=== PATIENT | female | born 1985 | race Caucasian/White ===

== ENCOUNTER → 2018-02-08 10:56 | Outpatient (CLI) | payer BC, SELFPAY ==
[2018-02-08 12:30] LABS: TSH w/ Reflex to FT4 1.69 uIU/mL (0.47-4.68)
== END ==
PROVIDERS: Family Provider Family Medicine; PCP Family Medicine; Visit Provider Family Medicine
DX: R00.2 Palpitations (principal)
CPT/HCPCS: 36415; 84443

== ENCOUNTER → 2018-05-30 09:37 | Outpatient (CLI) | payer BC, SELFPAY ==
--- NOTE | 2018-06-22 07:45 | P.HOLT.S_ITS ---
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 No significant dysrhythmias identified with this study. Occasional to rare PACs and PVCs
== END ==
PROVIDERS: Family Provider Family Medicine; PCP Family Medicine; Visit Provider Family Medicine
DX: R00.2 Palpitations (principal)
CPT/HCPCS: 0296T; 0298T

== ENCOUNTER → 2020-08-11 12:11 | Outpatient (CLI) | payer BC, SELFPAY ==
--- NOTE | 2020-08-11 12:13 | DI.US.S_ITS ---
PROCEDURE: US PELVIC COMPLETE INDICATIONS: PAIN TECHNIQUE: Real-time scanning was performed of the pelvic organs, with image documentation. Additional endovaginal scanning was necessary due to incomplete visualization of the adnexal and endometrial structures by transabdominal scanning. COMPARISON: None. FINDINGS: Transabdominal scanning: Limited scanning through the kidneys shows no hydronephrosis. Right kidney measures 11.4 cm. Left kidney measures 10.7 cm. Trace physiologic fluid in the pelvis. Endovaginal scanning: Uterus: Uterus is anteverted and normal in size at 10.5 x 6.2 x 4.8 cm. No uterine mass seen. The endometrium measures 8 mm in combined thickness. Ovaries: Within normal limits. Blood flow seen in both ovaries. Right ovary measures 3.1 x 2.1 x 1.6 cm. Left ovary measures 3.3 x 3.3 x 2.4 cm. -small simple cyst in the left ovary measuring 2.6 cm. IMPRESSION: 1. Endometrial thickness measuring 8 mm. 2. No uterine mass seen. 3. Simple left ovarian cyst measuring 2.6 cm. Dictated by: Addi Cole M.D. on 08/11/2020 at 13:03 Approved by: Addi Cole M.D. on 08/11/2020 at 13:06
== END ==
PROVIDERS: PCP Family Medicine; Referring Provider Family Medicine; Visit Provider Family Medicine
DX: R10.2 Pelvic and perineal pain (principal); N83.292 Other ovarian cyst, left side
CPT/HCPCS: 76856

== ENCOUNTER → 2020-09-01 09:05 | Outpatient (CLI) | payer BC, SELFPAY ==
[2020-09-01 10:19] LABS: Add Manual Diff / Slide Review NO; Basophils Absolute Auto 0 /uL (0-100); Basophils Percent Auto 0.5 % (0-2); Eosinophils Absolute Auto 100 /uL (0-450); Hematocrit 37.4 % (36-46); Lymphocytes Absolute Auto 1500 /uL (1100-4500); Lymphocytes Percent Auto 28.4 % (25-40); Mean Corpuscular HGB Conc 32.2 % (30-36); Mean Corpuscular Hemoglobin 30.2 PG (26-34); Mean Corpuscular Volume 93.7 fL (80-100); Monocytes Absolute Auto 400 /uL (0-900); Monocytes Percent Auto 8.4 % (3-14); Neutrophils Absolute Auto 3200 /uL (1500-7000); Neutrophils Percent Auto 60.7 % (50-75); Platelet Count 217 X10^3/uL (150-400); Red Blood Cell Count 3.99 X10^6/uL (4.0-5.2); Red Cell Distribution Width 13.2 % (11.6-14.8); White Blood Cell Count 5.2 X10^3/uL (4.5-11.0)
[2020-09-01 11:14] LABS: Alanine Aminotransferase 13 IU/L (<35); Albumin Globulin Ratio 1.7 (1.0-2.8); Alkaline Phosphatase 44 U/L (38-126); Aspartate Aminotransferase 25 IU/L (14-36); Bilirubin Total 0.6 mg/dL (0.2-1.3); Blood Urea Nitrogen 13 mg/dL (7-17); Carbon Dioxide 29 mmol/L (22-32); Chloride 104 mmol/L (98-107); Estimated Glomerular Filt Rate > 60.0 mL/min (>60); Globulin 2.3 g/dL (1.7-4.1); Glucose 89 mg/dL (70-100); HEMOLYSIS < 15 (0-50); Potassium 4.2 mmol/L (3.4-5.1); Sodium 136 mmol/L (137-145); Total Protein 6.3 g/dL (6.3-8.2)
== END ==
PROVIDERS: PCP Family Medicine; Referring Provider Family Medicine; Visit Provider Family Medicine
DX: R10.2 Pelvic and perineal pain (principal)
CPT/HCPCS: 36415; 80053; 85025

== ENCOUNTER → 2020-10-23 09:35 | Outpatient (CLI) | payer BC, SELFPAY ==
[2020-10-23 11:05] LABS: TSH w/ Reflex to FT4 2.07 uIU/mL (0.47-4.68)
== END ==
PROVIDERS: PCP Family Medicine; Referring Provider Family Medicine; Visit Provider Family Medicine
DX: L65.9 Nonscarring hair loss, unspecified (principal)
CPT/HCPCS: 36415; 84443

== ENCOUNTER → 2021-12-09 12:03 | Outpatient (CLI) | payer BC, SELFPAY ==
[2021-12-09 12:55] LABS: Add Manual Diff / Slide Review NO; Basophils Absolute Auto 0 /uL (0-100); Basophils Percent Auto 0.4 % (0-2); Eosinophils Absolute Auto 100 /uL (0-450); Eosinophils Percent Auto 1.5 % (2-4); Hemoglobin 11.6 g/dL (12.0-16.0); Lymphocytes Absolute Auto 1600 /uL (1100-4500); Lymphocytes Percent Auto 24.1 % (25-40); Mean Corpuscular HGB Conc 33.2 % (30-36); Mean Corpuscular Hemoglobin 28.6 PG (26-34); Mean Corpuscular Volume 86.3 fL (80-100); Monocytes Absolute Auto 600 /uL (0-900); Monocytes Percent Auto 9.7 % (3-14); Neutrophils Absolute Auto 4100 /uL (1500-7000); Neutrophils Percent Auto 64.3 % (50-75); Platelet Count 198 X10^3/uL (150-400); Red Blood Cell Count 4.06 X10^6/uL (4.0-5.2); Red Cell Distribution Width 13.9 % (11.6-14.8); White Blood Cell Count 6.5 X10^3/uL (4.5-11.0)
[2021-12-09 13:57] LABS: TSH w/ Reflex to FT4 1.32 uIU/mL (0.47-4.68)
== END ==
PROVIDERS: PCP Family Medicine; Referring Provider Physician Assistant Medical; Visit Provider Physician Assistant Medical
DX: N92.6 Irregular menstruation, unspecified (principal); R53.83 Other fatigue
CPT/HCPCS: 36415; 84443; 85025

== ENCOUNTER → 2022-05-13 10:26 | Outpatient (CLI) | payer BC, SELFPAY ==
[2022-05-13 11:30] LABS: COVID19 -Nasal RAPID Negative (Negative)
== END ==
PROVIDERS: PCP Family Medicine; Visit Provider Specialist
DX: Z20.822 Contact with and (suspected) exposure to COVID-19 (principal); Z01.812 Encounter for preprocedural laboratory examination
CPT/HCPCS: 87635

== ENCOUNTER 2022-05-16 07:34 | Day surgery (SDC) | payer BC, SELFPAY ==
[2022-05-13 10:28] VITALS: BMI 24.7
[2022-05-16] VITALS (9 sets, daily range): BP systolic 99–130; BP diastolic 60–85; PULSE 74–133; RESP 12–25; TEMP 36.3–37.2; O2SAT 97–100; BMI 24.7
--- NOTE | 2022-05-16 | PATH_ITS ---
[facility] Accession Number: [id number] . 01 Material submitted: . uterus - UTERUS AND BILATERAL FALLOPIAN TUBES . 01 Diagnosis: Uterus and Bilateral Fallopian Tubes, Hysterectomy and Salpingectomy: Benign, early secretory phase endometrium without evidence of hyperplasia, atypia or malignancy. Myometrium without diagnostic abnormalities. Benign fallopian tube present, see comment. [facility] 05/23/2022 1627 Local . 01 Comment: Examination of the endometrium reveals secretory phase glands without atypia, hyperplasia or malignancy. No diagnostic abnormalities are identified on microscopic examination of the myometrium. Examination of one fallopian tube reveals no significant diagnostic abnormalities. A second tubular structure (possibly representing fragment of second fallopian tube) is also described (on the gross description), however, on microscopic examination, no fallopian tube epithelium is recognized. Only fibroconnective/vascular tissue is identified. Additional sections have also been submitted in an attempt to identify the possible second fallopian tube, however, no definite fallopian tube epithelium identified. . Clinical correlation is recommended. . 01 Electronically signed: . Adrianne Malone MD, Pathologist NPI- [id number] . 01 Gross description: . The specimen is received in formalin labeled with the patient's name and uterus and bilateral fallopian tubes, and consists of a fragmented uterus (95 grams, 12.5 x 10.4 x 4.0 cm in aggregate), with one fimbriated fallopian tube (7.2 x 1.0 cm), and a second tubular fragment possibly consistent with second fallopian tube (1.3 x 0.3 cm); however, no distinct second fimbriated fallopian tube is identified. No cervix or additional adnexa are identified. The serosa is vega and smooth with no evidence of adhesions or hemorrhage. The identifiable endometrium is vega and lush, and averages 0.2 cm thick. Sectioning reveals vega trabecular myometrium with no nodules, lesions, or hemorrhage identified. Fimbriated fallopian tube has congested smooth serosa without significant abnormalities. Sectioning reveals a congested stellate lumen. The tubular structure possibly consistent with fragment of second fallopian tube has vega smooth serosa and sectioning reveals an unremarkable pinpoint lumen. Director Of [employer] sections are submitted as follows: . A1-A2: Director Of [employer] endometrium. A3: Director Of [employer] serosa A4: Fimbriated fallopian tube to include entire fimbriae and cross-sections. A5: Director Of Email Marketing second tubular structure possibly consistent with fallopian tube. ([id number]) . Additional fragments of possible second fallopian tube are submitted in cassettes A6-A7. ([id number]) /MRV 05/23/2022 1627 Local . 01 Pathologist provided ICD-10: N39.3, N92.0 . 01 CPT . 911445 Specimen Comment: A courtesy copy of this report has been sent to [phone] Performed at: 01 [facility] [address] [place] [address], [place], [place] [id number] MD David Garner MD Phone: [phone]
--- NOTE | 2022-05-16 08:47 | PM.PREOP ---
Pre-operative Note COVID-19 COVID-19 status: Negative Result date/Date tested (Pos, Neg/Pending): 05/13/22 Criteria for continued procedure: Non-surgical alternatives not available or appropriate per current SOC Interval Note History & Physical reviewed/Exam performed by Physician: Yes Changes to H&P: No H&P completed within 30 days and has changed as indicated here:: 05/06/22
[2022-05-16] MEDS: CEFAZOLIN 2 GM/100 ML PREMIX 100 ML IV (09:05)
--- NOTE | 2022-05-16 09:19 | SUR.OPER ---
Lithotomy on padded OR bed. [place] Pad Positioner under torso. Head on pillow, arms padded and tucked at sides. Legs secured in padded yellow fins stirrups.
--- NOTE | 2022-05-16 10:15 | SUR.OPER ---
Lithotomy on padded OR bed. [place] Pad Positioner under torso. Head on pillow, arms padded and tucked at sides. Legs secured in padded yellow fins stirrups.
[2022-05-16] MEDS: BUPIVACAINE 0.5% W/ EPI (PF) 30 ML VIAL INJ (10:28)
[2022-05-16] MEDS: LACTATED RINGERS 1,000 ML 100 ML IV (10:30)
--- NOTE | 2022-05-16 11:37 | P.OP_ITS ---
Operative Date/Time/Diagnoses Date of procedure: 05/16/22 Time of procedure: 11:37 Pre-op diagnosis: Stress urinary incontinence Abnormal uterine bleeding Post-op diagnosis: same Procedure & Clinicians Procedure: Procedures Operation Date: 05/16/22 09:00 Actual Procedure Side Surgeon p Laparoscopic Supracervical Hysterectomy w. bilateral salpingectomy Berkley Paredes MD s TVT w. cystoscopy Berkley Paredes MD Indications: Abnormal uterine bleeding Stress urinary incontinence Surgeon: Berkley Paredes Corporate Associate Attorney: Ashley Feliciano Anesthesia Type: General and Local Operative Notes Findings: 8 week size anteverted uterus Normal tubes and ovaries Normal appendix Normal liver and gallbladder Closure Type: primary Specimen(s): left tube, right tube and uterus Applied: catheter (Removed at the end of the case) Estimated blood loss (mL): 50 Blood products transfused: none Procedure in detail: The patient was taken to the operating room where she was placed in the dorsal supine position. After adequate general endotracheal anesthesia was achieved, she was placed in the dorsal lithotomy position, and prepped and draped in the usual sterile fashion. A timeout was performed. A bivalve speculum was placed into the vagina and the anterior lip of the cervix grasped with a single-tooth tenaculum. The cervical os was sequentially dilated until the ZUMI uterine manipulator could pass easily into the endometrial cavity. The single-tooth tenaculum was removed from the anterior lip of the cervix, and the bivalve speculum was removed from the vagina. Attention was then turned to the abdomen where 6 mL of half percent Marcaine with epinephrine were injected in the umbilical fold. A 5 mm incision was made. The Verees needle was placed into the peritoneal cavity, and its placement confirmed by aspiration and drop test. The Verees needle was removed. A 5 mm trocar was placed without difficulty. 2 other incisions were made 4cm lateral to the umbilicus after 5 mL of half percent Marcaine with epinephrine were injected. These were 5 mm incisions. Two 5 mm trocars were placed under direct visualization. The right tube was grasped with an atraumatic grasper. Using the with settings Powerseal the mesosalpinx was cauterized and cut all the way down to the cornua of the uterus. The cornua of the uterus was then grasped with an atraumatic grasper. The utero-ovarian ligaments were cauterized and cut. The round ligament and broad ligament was cauterized and cut with the Powerseal. Hemostasis was achieved. The bladder flap was created. All of this was repeated on the left side. The remainder of the bladder flap was created using the Powerseal, and the bladder taken down off the lower uterine segment and cervix. Using the Endoloop, the cervix was amputated from the uterus 2 cm above the uterosacral ligaments, after the ZUMI uterine manipulator was removed from the uterus. A moistened sponge stick was placed into the vagina. There was a small amount of bleeding noted from the posterior edge of the cervix, and this was cauterized for hemostasis. 6 mL of half percent Marcaine with epinephrine were injected above the pubic symphysis. A 12 mm trocar was placed. An Endobag was placed through the suprapubic trocar and the uterus and ovaries were placed into the Endobag. The trocar was removed. The edges of the endobag were brought up through the skin. The Kev placed into the endobag. The uterus was hand morcellated in approximately 10 pieces. The Endobag was removed from the peritoneal cavity with the Kev. The pelvis was copiously irrigated with warm normal saline. No bleeding was noted. The instruments were removed from the abdomen. The CO2 was allowed to escape. The suprapubic incision was closed on the fascia with 0 Vicryl. Two simple interrupted sutures were placed in the suprapubic incision to reapproximate the subcutaneous layer. All of the incisions were closed with 4-0 Biosyn in a subcuticular fashion. Steri-Strips and Allevyn dressings were placed. The moistened sponge stick was removed from the vagina. 100 cc of sterile saline with a small amount of 0.25% Marcaine with epinephrine were injected behind the pubic symphysis into the space of Retzius using a # 20 spinal needle. Attention was then turned to the vagina where a weighted speculum was placed. Allis clamps were placed lateral to the urethra proximally 1.5 cm from the urethral meatus. 3 cc of 0.25% Marcaine with epinephrine were injected submucosally. A 1.5 cm incision was made vertically. The incision was dissected out laterally with Metzenbaum scissors. A rigid catheter was placed into the bladder. The patient was placed flat on the table with her thighs parallel to the floor. 10 cc of 0.25% Marcaine with epinephrine were injected into the proposed path of the TVT on the patient's right side, with the bladder neck retracted away from the patient's right side. This area was then dissected with the dilators to the # 6 Hegar dilator. All of this was repeated on the patient's left side with the bladder neck retracted away from the patient's left side. A hemostat was placed in the midline of the TVT on the plastic covering, with care not to include the TVT itself. The TVT was loaded. The patient's shoulder was marked on the drape on the right and left sides. Beginning with the right side with the bladder neck retracted away from the right side, the TVT was directed towards the patient's right shoulder, perforating the urogenital diaphragm, coming up behind the pubic symphysis and out through the skin 2 cm from the midline. All of this was repeated on the patient's left side with the bladder neck retracted away from the patient's left side. The bladder was filled with 240 cc of sterile saline. A cystoscopy was performed. The bubble was seen at the dome of the bladder. There was no perforation of the bladder with the introducers for the TVT. The TVT applicators were pulled up through the skin with approximately 4 mm between the TVT and the urethra. The patient was made to cough and there was no leakage of urine. The sheath over the TVT was removed by grasping with hemostats, and care was taken to not overtighten the TVT by placing a pickup between the TVT and the urethra. The TVT was cut below the skin line on the abdomen. Pressure was held over the vaginal incision for 1 minute. Hemostasis was achieved. The vaginal mucosa was closed with 3-0 Vicryl with a running interlocking suture. Surgical glue was placed over the TVT incisions above the pubic symphysis. The weighted speculum was removed from the vagina. Sponge, lap, and instrument counts were correct x-2. The patient tolerated the procedure well, was taken to PACU in stable condition. Complications: none Post-operative Condition: stable Disposition: PACU Plan for aftercare: Home after recovery and successful void with low postvoid residual
--- NOTE | 2022-05-16 11:51 | SUR.PHASEI ---
1145 Dr Harley at bedside and notified that pt HR was 135 when she was waking up and then went back down into the low 100s. Pt denies pain. No orders given by Dr Harley.
--- NOTE | 2022-05-16 12:09 | SUR.PHASEI ---
1205 pt sitting up in bed eating applesauce and states pain 5/5 but declines any pain medications
[2022-05-16] MEDS: OXYCODONE/ACETAMINOPHEN 5/325 TABLET 1 TAB PO (12:23)
== END 2022-05-16 14:45 | disposition home or self-care (01) ==
LOC: OR 07:36 → AC 07:37
PROVIDERS: PCP Family Medicine; Referring Provider Obstetrics & Gynecology; Visit Provider Obstetrics & Gynecology
PROC: 0UT94ZL Resection of Uterus, Supracervical, Percutaneous Endoscopic Approach (ICD-10-PCS; CPT 58542; principal; 2022-05-16 09:00)
PROC: 0TSD0ZZ Reposition Urethra, Open Approach (ICD-10-PCS; CPT 58542; 2022-05-16 09:00)
DX: N39.3 Stress incontinence (female) (male) (principal); N93.8 Other specified abnormal uterine and vaginal bleeding
CPT/HCPCS: 58542; 57288; C1771; J0690; J1100; J1200; J1885; J2250; J2405; J2795; J3010

== ENCOUNTER 2022-08-04 00:08 | Emergency (ER) | payer BC, SELFPAY ==
[2022-08-04] VITALS (12 sets, daily range): BP systolic 106–138; BP diastolic 64–95; PULSE 107–212; RESP 13–25; TEMP 36.4; O2SAT 95–99; BMI 24.9
--- NOTE | 2022-08-04 00:28 | DI.RAD.S_ITS ---
PROCEDURE: XR CHEST 1V INDICATIONS: chest pain TECHNIQUE: One view of the chest was acquired. COMPARISON: None. FINDINGS: Surgical changes and devices: None. Lungs and pleura: Lungs are clear. No pleural effusions or pneumothorax. Mediastinum: Mediastinal contours appear normal. Heart size is normal. Bones and chest wall: No suspicious bony lesions. Overlying soft tissues appear unremarkable. IMPRESSION: No acute pulmonary process. Dictated by: Kimi Alejandro M.D. on 08/04/2022 at 1:24 Approved by: Kimi Alejandro M.D. on 08/04/2022 at 1:24
--- NOTE | 2022-08-04 00:41 | ED_ITS ---
HPI - Chest Pain General Chief Complaint: Chest Pain Stated Complaint: HEART RATE HIGH 188 FOR OVER 1 HOUR Time Seen by Provider: 08/04/22 00:37 Source: patient Mode of arrival: Ambulatory Limitations: no limitations History of Present Illness HPI narrative: Patient is a 36-year-old female who is here for evaluation of greater than 1 hour of a fast heart rate. She has had a fast heart rate in the past. She is seen cardiology in the past but that was greater than 5 years ago. It was recommended that she follow-up with multiple pressure riveter operator have an ablation but she never had this done. She states that she gets the symptoms fairly regularly however very often they are self-limiting lasting less than a couple minutes and then completely resolved. This evening the symptoms started and have been persistent for about an hour which brought her to the emergency department. No lightheadedness. Does have a pressure in her chest. Related Data Home Medications Medication Instructions Recorded Confirmed lysine 500 mg capsule 500 mg sleep 05/16/22 07/14/22 magnesium 500 mg tablet 500 mg PO BEDTIME 05/16/22 07/14/22 melatonin 10 mg tablet 13 mg PO BEDTIME PRN sleep aid 05/16/22 07/14/22 Previous Rx's Medication Instructions Recorded valacyclovir 500 mg tablet See Rx Instructions .Route 02/03/22 .COMPLEX #90 tabs methylphenidate HCl 5 mg tablet See Rx Instructions PO BID #90 tabs 03/24/22 trazodone 50 mg tablet 50 mg PO BEDTIME PRN insomnia #30 03/24/22 tabs oxycodone 5 mg tablet 5 mg PO Q4H PRN pain #20 tabs 05/16/22 Allergies Allergy/AdvReac Type Severity Reaction Status Date / Time cephalexin Allergy Intermediate Hives Verified 08/04/22 00:56 Review of Systems Constitutional Constitutional: Reports system reviewed and no additional complaints, except as documented Cardiovascular Cardiovascular: Reports system reviewed and no additional complaints, except as documented Respiratory Respiratory: Reports system reviewed and no additional complaints, except as documented Integumentary/Breasts Skin/Breast: Reports system reviewed and no additional complaints, except as documented Hematologic/Lymphatic On Anticoagulants: No Patient History Medical History Arrhythmia History of morphea Premenstrual dysphoric disorder (spontaneous vaginal delivery) Surgical History H/O breast augmentation History of surgical removal of ganglion cyst S/P tonsillectomy Social History marital status: number of children: 2 household members: spouse and family lives independently: Yes caregiver/support person: No housing: house occupational status: employed current occupational exposures/hazards: No Smoking Status: Never smoker alcohol intake: current substance use type: does not use Smoking Status: Never smoker alcohol intake frequency: a few times a week Substance Use Type: does not use Exam Initial Vital Signs Initial Vital Signs: Vital Signs Temperature 97.6 F 08/04/22 00:19 Pulse Rate 209 H 08/04/22 00:19 Respiratory Rate 16 08/04/22 00:19 Blood Pressure 136/95 H 08/04/22 00:19 Pulse Oximetry 97 08/04/22 00:19 Oxygen Delivery Method 08/04/22 00:19 HENMT Head: normal to inspection Resp Effort & Inspection: normal respiratory effort Auscultation: clear to auscultation bilaterally Cardio Rate: tachycardic Rhythm: regular rhythm Neuro General: patient alert, patient awake and moves all extremities Extrem General: normal to inspection and capillary refill normal Course Orders Ordered: ED Orders 08/04/22 00:28 XR chest 1V Stat EKG-12 Lead Stat 08/04/22 00:42 Complete Blood Count AUTO DIFF Stat Comprehensive Metabolic Panel Stat Lipase Stat Magnesium Stat Partial Thromboplastin Time Stat Prothrombin Time INR Stat Troponin & CK Cardiac Panel Stat 08/04/22 01:35 COVID19 -Nasal RAPID/Pre-Proc Stat 08/04/22 01:40 EKG-12 Lead Stat Discontinued Medications Adenosine (Adenosine 6 Mg/2 Ml Vial) 6 mg IV NOW ONE Stop: 08/04/22 00:42 Last Admin: 08/04/22 00:46 Dose: 6 mg Documented By: SUSSY Aspirin (Aspirin 81 Mg Chew Tab) 324 mg PO NOW ONE Stop: 08/04/22 00:29 Last Admin: 08/04/22 00:51 Dose: Not Given Documented By: SUSSY Vital Signs Vital signs: Vital Signs - 8 hr 08/04/22 00:19 08/04/22 00:40 08/04/22 00:48 Temperature 97.6 F Pulse Rate 209 H 212 H 123 H Respiratory Rate 16 25 H 23 Blood Pressure 136/95 H Pulse Oximetry 97 95 99 Oxygen Delivery Method Room Air Room Air 08/04/22 00:48 08/04/22 00:50 08/04/22 00:50 Temperature Pulse Rate 116 H Respiratory Rate 22 Blood Pressure 130/85 138/87 Pulse Oximetry 99 Oxygen Delivery Method 08/04/22 01:00 08/04/22 01:00 08/04/22 01:10 Temperature Pulse Rate 109 H Respiratory Rate 23 Blood Pressure 113/76 128/77 Pulse Oximetry 96 Oxygen Delivery Method 08/04/22 01:10 08/04/22 01:20 08/04/22 01:20 Temperature Pulse Rate 114 H 116 H Respiratory Rate 15 16 Blood Pressure 121/79 Pulse Oximetry 97 96 Oxygen Delivery Method 08/04/22 01:30 08/04/22 01:30 08/04/22 01:40 Temperature Pulse Rate 114 H Respiratory Rate 20 Blood Pressure 108/69 106/70 Pulse Oximetry 95 Oxygen Delivery Method 08/04/22 01:40 08/04/22 01:50 08/04/22 01:50 Temperature Pulse Rate 113 H 115 H Respiratory Rate 13 23 Blood Pressure 111/64 Pulse Oximetry 95 96 Oxygen Delivery Method 08/04/22 02:00 08/04/22 02:00 08/04/22 02:10 Temperature Pulse Rate 112 H Respiratory Rate 22 Blood Pressure 116/68 107/69 Pulse Oximetry 96 Oxygen Delivery Method 08/04/22 02:10 Temperature Pulse Rate 107 H Respiratory Rate 22 Blood Pressure Pulse Oximetry 96 Oxygen Delivery Method MDM - Chest Pain Lab Data Attestation: I reviewed the patient's lab results. Result diagrams: 08/04/22 00:42 08/04/22 00:42 Labs: Lab Results 08/04/22 08/04/22 08/04/22 Range/Units 00:42 00:42 00:42 WBC 9.2 (4.5-11.0) X10^3/uL RBC 4.76 (4.0-5.2) X10^6/uL Hgb 13.3 (12.0-16.0) g/dL Hct 41.3 (36-46) % MCV 86.7 (80-100) fL MCH 27.9 (26-34) PG MCHC 32.2 (30-36) % RDW 16.7 H (11.6-14.8) % Plt Count 254 (150-400) X10^3/uL Neut % (Auto) 68.3 (50-75) % Lymph % (Auto) 25.9 (25-40) % Barber % (Auto) 4.8 (3-14) % Eos % (Auto) 0.2 L (2-4) % Baso % (Auto) 0.8 (0-2) % Neut # (Auto) 6300 (1814-4271) /uL Lymph # (Auto) 2400 (3989-7734) /uL Barber # (Auto) 400 (0-900) /uL Eos # (Auto) 0 (0-450) /uL Baso # (Auto) 100 (0-100) /uL PT 10.2 (10.1-12.7) SECONDS INR 0.9 (0.9-1.3) APTT 31 (26-36) SECONDS Sodium 142 (137-145) mmol/L Potassium 3.6 (3.4-5.1) mmol/L Chloride 108 H (98-107) mmol/L Carbon Dioxide 22 (22-32) mmol/L BUN 8 (7-17) mg/dL Creatinine 0.62 (0.52-1.04) mg/dL Estimated GFR > 60 (>60) mL/min BUN/Creatinine Ratio 12.9 (6-22) Glucose 143 H (70-100) mg/dL Calcium 8.3 L (8.4-10.2) mg/dL Magnesium 2.0 (1.6-2.3) mg/dL Total Bilirubin 0.2 (0.2-1.3) mg/dL AST 24 (14-36) IU/L ALT 19 (<35) IU/L Alkaline Phosphatase 72 (38-126) U/L Total Creatine Kinase 169 H (30-135) U/L CK-MB (CK-2) 1.14 (<2.37) ng/mL CK-MB (CK-2) Rel Index 0.7 L (1.5-5.0) % Troponin I < 0.012 (0.01-0.034) ng/mL Total Protein 8.0 (6.3-8.2) g/dL Albumin 4.7 (3.5-5.0) g/dL Globulin 3.3 (1.7-4.1) g/dL Albumin/Globulin Ratio 1.4 (1.0-2.8) Lipase 151 (23-300) U/L SARS-CoV-2 (PCR) (Negative) 08/04/22 Range/Units 01:35 WBC (4.5-11.0) X10^3/uL RBC (4.0-5.2) X10^6/uL Hgb (12.0-16.0) g/dL Hct (36-46) % MCV (80-100) fL MCH (26-34) PG MCHC (30-36) % RDW (11.6-14.8) % Plt Count (150-400) X10^3/uL Neut % (Auto) (50-75) % Lymph % (Auto) (25-40) % Barber % (Auto) (3-14) % Eos % (Auto) (2-4) % Baso % (Auto) (0-2) % Neut # (Auto) (4683-9111) /uL Lymph # (Auto) (4020-2114) /uL Barber # (Auto) (0-900) /uL Eos # (Auto) (0-450) /uL Baso # (Auto) (0-100) /uL PT (10.1-12.7) SECONDS INR (0.9-1.3) APTT (26-36) SECONDS Sodium (137-145) mmol/L Potassium (3.4-5.1) mmol/L Chloride (98-107) mmol/L Carbon Dioxide (22-32) mmol/L BUN (7-17) mg/dL Creatinine (0.52-1.04) mg/dL Estimated GFR (>60) mL/min BUN/Creatinine Ratio (6-22) Glucose (70-100) mg/dL Calcium (8.4-10.2) mg/dL Magnesium (1.6-2.3) mg/dL Total Bilirubin (0.2-1.3) mg/dL AST (14-36) IU/L ALT (<35) IU/L Alkaline Phosphatase (38-126) U/L Total Creatine Kinase (30-135) U/L CK-MB (CK-2) (<2.37) ng/mL CK-MB (CK-2) Rel Index (1.5-5.0) % Troponin I (0.01-0.034) ng/mL Total Protein (6.3-8.2) g/dL Albumin (3.5-5.0) g/dL Globulin (1.7-4.1) g/dL Albumin/Globulin Ratio (1.0-2.8) Lipase (23-300) U/L SARS-CoV-2 (PCR) Negative (Negative) Imaging Data Chest x-ray: Radiologist's Impression: [address] [address] XRay Report Signed Patient: Ngozi Dorado MR#: [id number] : 1985 Acct:[id number] Age/Sex: 36 / F Date of Service: 08/04/22 Loc: ED Accession Number: [id number] ?? Procedure: XR chest 1V Ordering Provider: Pedro Wilson D.O. PROCEDURE:? XR CHEST 1V ? INDICATIONS:? chest pain ? TECHNIQUE:? One view of the chest was acquired.? ? COMPARISON:? None. ? FINDINGS:? ? Surgical changes and devices:? None.? ? Lungs and pleura:? Lungs are clear.? No pleural effusions or pneumothorax.? ? Mediastinum:? Mediastinal contours appear normal.? Heart size is normal.? ? Bones and chest wall:? No suspicious bony lesions.? Overlying soft tissues appear unremarkable.? ? IMPRESSION:? No acute pulmonary process. ? ? Dictated by: Kimi Alejandro M.D. on 08/04/2022 at 1:24 ? ? Approved by: Kimi Alejandro M.D. on 08/04/2022 at 1:24?? ECG Data Attestation: I personally reviewed and interpreted this ECG as follows: Interpretation: SVT Ventricular rate 178 Normal axis Normal QRS Nonspecific ST T wave changes Repeat EKG Sinus tachycardia Ventricular rate 110 Normal QRS Normal QTC No ST T wave changes MDM Narrative Medical decision making narrative: Patient is in a regular narrow complex tachycardia. Two attempts a vagal maneuvers were unsuccessful. She was given 6 mg of adenosine which for couple beats did show sinus rhythm however heart rate quickly went back to the 180s but then gradually improved to the point where she was in the 100s. She states that she felt like she was completely resolved. Was having no chest pain. No palpi tations. This felt normal for her. I had a discussion with her regarding her symptoms. I did recommend that she follow-up with cardiology and also her primary doctor. An e-mail was sent to her primary doctor. Patient was given return precautions and follow-up instructions. She expressed understanding and agreement. Discharge Plan Departure Patient Disposition: Home Clinical Impression: SVT (supraventricular tachycardia) Instructions: Paroxysmal Supraventricular Tachycardia Activity Restrictions/Additional Instructions: I do recommend that you continue all of your medications as directed. Contact your primary doctor for referral to see Cardiology. Return to the emergency department for any new or worsening symptoms. Prescriptions: No Action trazodone 50 mg tablet 50 mg PO BEDTIME PRN (Reason: insomnia) Qty: 30 3RF methylphenidate HCl 5 mg tablet See Rx Instructions PO BID Qty: 90 0RF Rx Instructions: Take 10 mg in the morning and 5 mg in the afternoon orally twice a day; valacyclovir 500 mg tablet See Rx Instructions .ROUTE .COMPLEX Qty: 90 3RF Dose Instruction: TAKE 1 TABLET BY MOUTH DAILY Rx Instructions: TAKE 1 TABLET BY MOUTH DAILY lysine 500 mg Capsule 500 mg magnesium 500 mg Tablet 500 mg PO BEDTIME melatonin 10 mg Tablet 13 mg PO BEDTIME PRN (Reason: sleep aid) oxycodone 5 mg tablet 5 mg PO Q4H PRN (Reason: pain) Qty: 20 0RF Referrals: Divina Callejas DO [Primary Care Provider] - Stand Alone Forms: Patient Portal/API
[2022-08-04] MEDS: ADENOSINE 6 MG/2 ML VIAL IV (00:46)
[2022-08-04 00:54] LABS: Add Manual Diff / Slide Review NO; Basophils Absolute Auto 100 /uL (0-100); Basophils Percent Auto 0.8 % (0-2); Eosinophils Absolute Auto 0 /uL (0-450); Eosinophils Percent Auto 0.2 % (2-4); Hematocrit 41.3 % (36-46); Hemoglobin 13.3 g/dL (12.0-16.0); Lymphocytes Absolute Auto 2400 /uL (1100-4500); Lymphocytes Percent Auto 25.9 % (25-40); Mean Corpuscular HGB Conc 32.2 % (30-36); Mean Corpuscular Hemoglobin 27.9 PG (26-34); Mean Corpuscular Volume 86.7 fL (80-100); Monocytes Absolute Auto 400 /uL (0-900); Monocytes Percent Auto 4.8 % (3-14); Neutrophils Absolute Auto 6300 /uL (1500-7000); Neutrophils Percent Auto 68.3 % (50-75); Platelet Count 254 X10^3/uL (150-400); Red Blood Cell Count 4.76 X10^6/uL (4.0-5.2); Red Cell Distribution Width 16.7 % (11.6-14.8); White Blood Cell Count 9.2 X10^3/uL (4.5-11.0)
[2022-08-04 00:58] LABS: INR 0.9 (0.9-1.3); Prothrombin Time 10.2 SECONDS (10.1-12.7)
[2022-08-04 01:01] LABS: PTT Partial Thromboplastin Tim 31 SECONDS (26-36)
[2022-08-04 01:17] LABS: Alanine Aminotransferase 19 IU/L (<35); Albumin 4.7 g/dL (3.5-5.0); Albumin Globulin Ratio 1.4 (1.0-2.8); Alkaline Phosphatase 72 U/L (38-126); Aspartate Aminotransferase 24 IU/L (14-36); BUN Creatinine Ratio 12.9 (6-22); Bilirubin Total 0.2 mg/dL (0.2-1.3); Blood Urea Nitrogen 8 mg/dL (7-17); Calcium 8.3 mg/dL (8.4-10.2); Carbon Dioxide 22 mmol/L (22-32); Chloride 108 mmol/L (98-107); Creatine Kinase 169 U/L (30-135); Estimated Glomerular Filt Rate > 60 mL/min (>60); Globulin 3.3 g/dL (1.7-4.1); Glucose 143 mg/dL (70-100); HEMOLYSIS < 15 (0-50); Lipase 151 U/L (23-300); Potassium 3.6 mmol/L (3.4-5.1); Sodium 142 mmol/L (137-145)
[2022-08-04 01:28] LABS: Troponin I < 0.012 ng/mL (0.01-0.034)
[2022-08-04 01:32] LABS: CKMB % Relative Index 0.7 % (1.5-5.0); Creatine Kinase MB 1.14 ng/mL (<2.37)
[2022-08-04 01:56] LABS: COVID19 -Nasal RAPID Negative (Negative)
== END 2022-08-04 02:28 | disposition home or self-care (01) ==
PROVIDERS: Emergency Provider Emergency Medicine; PCP Family Medicine
DX: I47.1 Supraventricular tachycardia (principal); Z20.822 Contact with and (suspected) exposure to COVID-19
CPT/HCPCS: 36415; 71045; 80053; 82550; 82553; 83690; 83735; 84484; 85025; 85610; 85730; 87635; 93005; 96374; 99284; C9803; J0153

== ENCOUNTER → 2023-01-26 10:03 | Outpatient (CLI) | payer BC, SELFPAY ==
[2023-01-26 11:58] LABS: Add Manual Diff / Slide Review NO; Basophils Absolute Auto 0 /uL (0-100); Basophils Percent Auto 0.4 % (0-2); Eosinophils Absolute Auto 100 /uL (0-450); Eosinophils Percent Auto 1.4 % (2-4); Hemoglobin 12.3 g/dL (12.0-16.0); Lymphocytes Absolute Auto 1600 /uL (1100-4500); Lymphocytes Percent Auto 24.4 % (25-40); Mean Corpuscular HGB Conc 33.2 % (30-36); Mean Corpuscular Hemoglobin 29.5 PG (26-34); Mean Corpuscular Volume 89.1 fL (80-100); Monocytes Absolute Auto 400 /uL (0-900); Monocytes Percent Auto 6.2 % (3-14); Neutrophils Absolute Auto 4500 /uL (1500-7000); Neutrophils Percent Auto 67.6 % (50-75); Platelet Count 214 X10^3/uL (150-400); Red Blood Cell Count 4.16 X10^6/uL (4.0-5.2); White Blood Cell Count 6.6 X10^3/uL (4.5-11.0)
[2023-01-26 12:25] LABS: Alanine Aminotransferase 19 IU/L (<35); Albumin 4.1 g/dL (3.5-5.0); Albumin Globulin Ratio 1.5 (1.0-2.8); Alkaline Phosphatase 62 U/L (38-126); Aspartate Aminotransferase 24 IU/L (14-36); BUN Creatinine Ratio 19.3 (6-22); Bilirubin Total 0.5 mg/dL (0.2-1.3); Blood Urea Nitrogen 11 mg/dL (7-17); Calcium 8.4 mg/dL (8.4-10.2); Carbon Dioxide 25 mmol/L (22-32); Chloride 104 mmol/L (98-107); Cholesterol 176 mg/dL (140-199); Estimated Glomerular Filt Rate > 60 mL/min (>60); Globulin 2.8 g/dL (1.7-4.1); Glucose 100 mg/dL (70-100); HDL Cholesterol 86 mg/dL (40-60); HEMOLYSIS < 15 (0-50); LDL Cholesterol Calculated 78 mg/dL (<100); Sodium 136 mmol/L (137-145); Total Protein 6.9 g/dL (6.3-8.2); Triglycerides 61 mg/dL (35-150)
[2023-01-26 12:47] LABS: TSH w/ Reflex to FT4 2.16 uIU/mL (0.47-4.68)
[2023-01-26 16:13] LABS: Creatinine Urine Random 196.2 mg/dL
[2023-01-26 16:27] LABS: Microalbumin Urine Random < 0.6 mg/dL (0-1.6)
[2023-01-31 07:36] LABS: Percent Free Testosterone 3.07 % (0.50-2.80); Testosterone Free 0.49 ng/dL (0.10-0.85)
[2023-02-02 00:07] LABS: Estrogen 166 pg/mL (.)
[2023-02-03 07:19] LABS: % Free Progesterone 2.8 % (.); Progesterone, Serum 32 ng/dL (.)
== END ==
PROVIDERS: PCP Family Medicine; Referring Provider Family Medicine; Visit Provider Family Medicine
DX: F41.9 Anxiety disorder, unspecified (principal); F90.2 Attention-deficit hyperactivity disorder, combined type; I47.1 Supraventricular tachycardia; R68.82 Decreased libido
CPT/HCPCS: 36415; 80053; 80061; 82043; 82570; 82672; 84144; 84402; 84403; 84443; 84999; 85025

== ENCOUNTER → 2023-03-31 15:33 | Outpatient (CLI) | payer BC, SELFPAY ==
[2023-03-31 17:08] LABS: Add Manual Diff / Slide Review NO; Basophils Absolute Auto 0 /uL (0-100); Basophils Percent Auto 0.2 % (0-2); Eosinophils Absolute Auto 100 /uL (0-450); Eosinophils Percent Auto 1.5 % (2-4); Hematocrit 37.8 % (36-46); Hemoglobin 12.7 g/dL (12.0-16.0); Lymphocytes Absolute Auto 1700 /uL (1100-4500); Lymphocytes Percent Auto 18.1 % (25-40); Mean Corpuscular HGB Conc 33.5 % (30-36); Mean Corpuscular Hemoglobin 30.7 PG (26-34); Mean Corpuscular Volume 91.8 fL (80-100); Monocytes Absolute Auto 600 /uL (0-900); Monocytes Percent Auto 6.3 % (3-14); Neutrophils Absolute Auto 6800 /uL (1500-7000); Neutrophils Percent Auto 73.9 % (50-75); Platelet Count 206 X10^3/uL (150-400); Red Blood Cell Count 4.12 X10^6/uL (4.0-5.2); White Blood Cell Count 9.2 X10^3/uL (4.5-11.0)
[2023-03-31 17:25] LABS: BUN Creatinine Ratio 24.2 (6-22); Blood Urea Nitrogen 15 mg/dL (7-17); Carbon Dioxide 26 mmol/L (22-32); Chloride 101 mmol/L (98-107); Estimated Glomerular Filt Rate > 60 mL/min (>60); Glucose 92 mg/dL (70-100); HEMOLYSIS < 15 (0-50); Potassium 4.5 mmol/L (3.4-5.1); Sodium 135 mmol/L (137-145)
== END ==
PROVIDERS: PCP Family Medicine; Referring Provider Physician Assistant Medical; Visit Provider Physician Assistant Medical
DX: I47.1 Supraventricular tachycardia (principal)
CPT/HCPCS: 36415; 80048; 85025

== ENCOUNTER → 2023-06-26 12:39 | Outpatient (CLI) | payer BC, SELFPAY | PROVIDERS: PCP Family Medicine; Visit Provider Nurse Practitioner Family | DX: J02.9 Acute pharyngitis, unspecified (principal) | CPT/HCPCS: 87070 ==

== ENCOUNTER → 2023-07-04 09:19 | Outpatient (CLI) | payer BC, SELFPAY ==
--- NOTE | 2023-07-04 | DI.ECHO.S_ITS ---
[facility]---------+ [facility] +---------+ : : [address] : : : : [id number] : : : : Phone: [phone]---------+ Echocardiogram Report + + :Name: KAZ ELIZABETH Study Date: 07/04/2023 Height: 64 in : :[facility] ReadingLocation: Weight: 152 lb : : Gender: Female BSA: 1.7 m2 : :: 1985 Age: 37 yrs BP: 113/81 mmHg: :Reason For Study: PALPITATIONS, SVT : :Ordering Physician: DELVIS, : :MARILUZ Jensen Performed By: Keila Chavez : :Referring: MARILUZ BAXTER : + + Interpretation Summary The ejection fraction is estimated to be 60-65%. Diastolic parameters suggest probable normal left ventricular diastolic function and normal filling pressures. The right ventricle is normal in size and function. No significant valvular abnormalities. Pulmonary artery pressures cannot be estimated because of the lack of a measurable TR jet velocity but the IVC suggests a CVP of around 3 mmHg. Procedure: A two-dimensional transthoracic echocardiogram with color flow and Doppler was performed. The study quality was technically adequate. There is no prior echocardiogram noted for this patient. The patient was in sinus rhythm with heart rates between 74-91 bpm during the exam. Left Ventricle: The left ventricle is normal in size and wall thickness. The ejection fraction is estimated to be 60-65%. Diastolic parameters suggest probable normal left ventricular diastolic function and normal filling pressures. Right Ventricle: The right ventricle is normal in size and function. Atria: The left atrial size is normal. Right atrial size is normal. There is no Doppler evidence for an interatrial shunt. Mitral Valve: The mitral valve is normal in structure and function. There is trace mitral regurgitation. Aortic Valve: The aortic valve is trileaflet. The aortic valve opens well. There is no aortic valve stenosis. No aortic regurgitation is present. Tricuspid Valve: The tricuspid valve is normal in structure and function. There is a trace or physiologic amount of tricuspid regurgitation. Pulmonary artery pressures cannot be estimated because of the lack of a measurable TR jet velocity but the IVC suggests a CVP of around 3 mmHg. Pulmonic Valve: The pulmonic valve leaflets are thin and pliable; valve motion is normal. There is no pulmonic valvular regurgitation. Great Vessels: The aortic root is normal size. The ascending aorta could not be visualized. The IVC is of normal diameter and collapses greater than 50% with a sniff. This suggests a low right atrial pressure of 3 mm Hg. Pericardium/ Pleura There is no pericardial effusion. There is no pleural effusion. MMode/2D Measurements & Calculations LVIDd: 5.1 cm LVOT diam: 2.2 cm LVIDs: 3.5 cm Ao root diam: 2.7 cm FS: 30.4 % Ao Arch Diam (Prox Trans): 2.5 cm EPSS: 1.1 cm IVSd: 0.66 cm LVPWd: 0.64 cm LV ricks. diameter/BSA (cm/m^2): 2.9 LV sys. diameter/BSA (cm/m^2): 2.0 LA A2 area: 14.3 cm2 RA long axis: 4.3 cm LA A4 area: 15.3 cm2 RA area: 13.5 cm2 LA length (vol): 4.5 cm RA vol: 36.2 ml LA vol: 41.1 ml RA : 20.8 ml/m2 LA vol index: 23.6 ml/m2 RVD1 (basal): 3.0 cm TAPSE: 2.0 cm Doppler Measurements & Calculations Ao V2 max: 127.8 cm/sec LVOT Max Frandy: 83.4 cm/sec Ao V2 mean: 88.3 cm/sec LV V1 max P.8 mmHg Ao max P.5 mmHg LV V1 VTI: 17.1 cm Ao mean P.5 mmHg DAVID(I,D): 2.5 cm2 Ao V2 VTI: 25.9 cm DAVID(V,D): 2.4 cm2 sev ratio: 0.66 DAVID indexed to BSA (cm^2/m^2): 1.4 MV E max frandy: 62.8 cm/sec PA V2 max: 97.4 cm/sec MV A max frandy: 65.2 cm/sec PA V2 mean: 71.0 cm/sec MV E/A: 0.96 PA mean P.2 mmHg Med Peak E' Frandy: 8.1 cm/sec PA pr(Accel): 31.0 mmHg E/E' med: 7.7 Lat Peak E' Frandy: 13.2 cm/sec E/E' lat: 4.8 E/e' average: 6.2 MV dec time: 0.23 sec [facility] 63.7 ml Reading Physician:05:21 PM
== END ==
PROVIDERS: PCP Family Medicine; Referring Provider Internal Medicine Cardiovascular Disease; Visit Provider Internal Medicine Cardiovascular Disease
DX: I47.19 Other supraventricular tachycardia (principal)
CPT/HCPCS: 93306

== ENCOUNTER → 2023-07-13 11:25 | Outpatient (CLI) | payer BC, SELFPAY ==
[2023-07-13 13:19] LABS: Free T4, Direct Thyroxine 0.98 ng/dL (0.78-2.19)
[2023-07-13 13:33] LABS: Thyroid Stimulating Hormone 1.26 uIU/mL (0.47-4.68)
[2023-07-14 07:10] LABS: Triiodothyronine T3 Total 95 ng/dL (71-180)
== END ==
PROVIDERS: PCP Family Medicine; Referring Provider Internal Medicine Cardiovascular Disease; Visit Provider Internal Medicine Cardiovascular Disease
DX: R00.2 Palpitations (principal)
CPT/HCPCS: 36415; 84439; 84443; 84480

== ENCOUNTER 2023-08-02 06:51 | Day surgery (SDC) | payer BC, SELFPAY ==
[2023-07-27 07:21] VITALS: BMI 26.6
[2023-08-02 07:12] VITALS: BP 122/85; PULSE 90; RESP 16; TEMP 36.6; O2SAT 99; BMI 26.6
[2023-08-02] MEDS: SCOPOLAMINE 1 PATCH TOP (07:33)
[2023-08-02] MEDS: LACTATED RINGERS 1,000 ML 42 ML IV (07:33)
--- NOTE | 2023-08-02 07:47 | PM.GYNHP.1 ---
History of Present Illness History of Present Illness Reason for admission: vaginal bleeding Narrative: Ngozi Dorado is a 37 year old female 3 para 2 with persistent cyclic bleeding after a laparoscopic supracervical hysterectomy 1 year ago. [facility] Medical History (Updated 07/13/23 @ 16:47 by Berkley Paredes MD) SVT (supraventricular tachycardia) Premenstrual dysphoric disorder (spontaneous vaginal delivery) Arrhythmia History of morphea Surgical History (Updated 06/13/23 @ 09:57 by Blaise Corley MD) History of cardiac radiofrequency ablation Status post laparoscopic supracervical hysterectomy (~05/2022) History of surgical removal of ganglion cyst S/P tonsillectomy H/O breast augmentation Social History marital status: number of children: 2 household members: spouse and family lives independently: Yes caregiver/support person: No housing: house occupational status: employed current occupational exposures/hazards: No Smoking Status: Never smoker alcohol intake: current substance use type: does not use Meds Home Medications and Allergies Home Medications Medication Instructions Recorded Confirmed Type lysine 500 mg capsule 500 mg PO PRN PRN Sleep 05/16/22 08/02/23 History magnesium 500 mg tablet 500 mg PO BEDTIME 05/16/22 08/02/23 History melatonin 10 mg tablet 10 mg PO BEDTIME PRN sleep aid 11/22/22 08/02/23 History trazodone 50 mg tablet 25 mg (1/2 x 50 mg) PO BEDTIME PRN 11/22/22 08/02/23 Rx insomnia #45 tabs methylphenidate HCl 5 mg tablet See Rx Instructions PO BID #90 tabs 05/08/23 08/02/23 Rx lorazepam 1 mg tablet 0.5 mg (1/2 x 1 mg) PO Q DAY PRN 06/13/23 08/02/23 Rx PRN anxiety #20 tabs Allergies Allergy/AdvReac Type Severity Reaction Status Date / Time cephalexin Allergy Intermediate Hives Verified 07/13/23 10:39 Exam Vital Signs (past 8 hours): - 08/02/23 07:12 Temperature 98 F Pulse Rate 90 Respiratory Rate 16 Blood Pressure 122/85 Pulse Oximetry 99 Oxygen Delivery Method Room Air Oxygen Delivery Method Room Air Narrative Exam Narrative: HEENT: No thyromegaly, no anterior cervical or supraclavicular lymphadenopathy. Lungs:Clear to auscultation bilaterally, no wheezes. Cardiovascular: Regular rate and rhythm, no murmurs, rubs, or gallops. Abdomen: Well-healed laparoscopy scars. No hepatosplenomegaly. No masses palpable. External genitalia: Normal Vagina: Normal Cervix: Well-supported Extremities: No edema Assessment & Plan Assessment & Plan narrative: Assessment: 37-year-old 3 para 2 with persistent cyclic vaginal bleeding after laparoscopic supracervical hysterectomy Plan: Cautery of the endocervical canal The risks, benefits, and alternatives to the procedure were explained to the patient. The risks including bleeding and infection. She understands these risks and agrees to proceed. A full par Q was held and consent form was signed. Time Spent With Patient Time with patient: less than 30 minutes
--- NOTE | 2023-08-02 07:48 | PM.PREOP ---
Pre-operative Note Interval Note History & Physical reviewed/Exam performed by Physician: Yes Changes to H&P: No H&P completed within 30 days and has changed as indicated here:: 08/02/23
--- NOTE | 2023-08-02 08:18 | SUR.OPER ---
Lithotomy on padded OR bed, head on pillow, arms secured on padded arm boards at <90 degrees abduction. Legs secured in padded yellow fins stirrups.
[2023-08-02 08:30] VITALS: BP 146/92; PULSE 84; RESP 15; TEMP 36.4; O2SAT 96
[2023-08-02 08:35] VITALS: BP 131/80; PULSE 100; RESP 13; O2SAT 97
--- NOTE | 2023-08-02 08:36 | PM.GYNOP.1 ---
Operative Date/Time/Diagnoses Date of procedure: 08/02/23 Time of procedure: 08:36 Pre-op diagnosis: Cyclic vaginal bleeding after laparoscopic supracervical hysterectomy Post-op diagnosis: same Procedure & Clinicians Procedure: Procedures Operation Date: 08/02/23 07:45 Actual Procedure Side Surgeon p cautery of endocervical canal Not Applicable eBrkley Paredes MD Indications: Patient is a 37-year-old 3 para 2 with cyclic vaginal bleeding 1 year after laparoscopic supracervical hysterectomy Surgeon: Berkley Paredes Anesthesia Type: General (LMA) Operative Notes Findings: 3 cm endocervical canal Closure Type: not applicable Specimen(s): none Estimated blood loss (mL): 0 Procedure in detail: After informed consent was obtained, the patient was taken to the operating room where she was placed in the dorsal supine position. After adequate LMA general anesthesia was achieved, she was placed in the dorsal lithotomy position, and prepped and draped in the usual sterile fashion. A time-out was performed. A bivalve speculum was placed into the vagina and the anterior lip of the cervix was grasped with a single-tooth tenaculum. Using the #3 Hegar dilator, the endocervical canal was measured. This was 3 cm in length. Using the ball cautery on the Bovie tip, the endocervical canal was cauterized. Hemostasis was achieved. The single-tooth tenaculum was removed from the anterior lip of the cervix. The bivalve speculum was removed from the vagina. Sponge, lap, and instrument counts were correct x2. The patient tolerated the procedure well, and was taken to PACU in stable condition. Complications: none Post-operative Condition: stable Disposition: PACU Plan for aftercare: Home after recovery
[2023-08-02 08:40] VITALS: BP 122/87; PULSE 93; RESP 14; O2SAT 98
[2023-08-02 09:00] VITALS: BP 130/88; PULSE 83; RESP 14; TEMP 36.6; O2SAT 98
== END 2023-08-02 09:00 | disposition home or self-care (01) ==
PROVIDERS: PCP Family Medicine; Referring Provider Obstetrics & Gynecology; Visit Provider Obstetrics & Gynecology
PROC: 0UBC7ZZ Excision of Cervix, Via Natural or Artificial Opening (ICD-10-PCS; CPT 57522; principal; 2023-08-02 07:45)
DX: N93.9 Abnormal uterine and vaginal bleeding, unspecified (principal)
CPT/HCPCS: 57510; J1100; J2250; J2405; J2704; J3010

== ENCOUNTER → 2023-08-24 11:03 | Outpatient (CLI) | payer BC, SELFPAY ==
--- NOTE | 2023-08-24 11:04 | DI.MG.S_ITS ---
BILATERAL DIGITAL SCREENING MAMMOGRAM 3D/2D WITH CAD WITH AUGMENTATION: 08/24/2023 CLINICAL: Baseline exam. Routine screening. Family history of breast cancer. No prior exams were available for comparison. Both breasts are extremely dense, which lowers the sensitivity of mammography (category d />75% glandular tissue). Current study was also evaluated with a Computer Aided Detection (CAD) system. Bilateral breast implants are present. No significant masses, calcifications, or other findings are seen in either breast. IMPRESSION: NEGATIVE There is no mammographic evidence of malignancy. A 1 year screening mammogram is recommended. Based on Tyrer-Cuzick model (a risk assessment model), the patient's lifetime risk is 34.4% and her 10 year risk is 5.1%. If a patient has an elevated risk, a more comprehensive evaluation should be considered and/or a referral to a genetic counselor. The [place] [employer], [place] [employer], and NCCN Guidelines advise the consideration of Breast MRI as an adjunct to screening mammography in patients whose Lifetime risk to develop breast cancer is 20% or higher. This exam was interpreted at Station ID: [id number]. NOTE: For mammograms, a report in lay terms will be sent to the patient. Approximately 15% of breast malignancies will not be visualized mammographically. In the management of a palpable breast mass, a negative mammogram must not discourage biopsy of a clinically suspicious lesion. Electronically Signed By: Jimenez rivas/salina:08/24/2023 12:15:01 letter sent: Normal Exam ACR BI-RADS Category 1: Negative [id number]
== END ==
LOC: MAMMO 11:04
PROVIDERS: PCP Family Medicine; Referring Provider Family Medicine; Visit Provider Family Medicine
DX: Z12.31 Encounter for screening mammogram for malignant neoplasm of breast (principal); Z80.3 Family history of malignant neoplasm of breast; R92.343 Mammographic extreme density, bilateral breasts
CPT/HCPCS: 77063; 77067

== ENCOUNTER → 2024-05-08 07:29 | Outpatient (CLI) | payer BC, SELFPAY ==
[2024-05-08 08:03] LABS: Add Manual Diff / Slide Review NO; Basophils Absolute Auto 0 /uL (0-100); Basophils Percent Auto 0.3 % (0-2); Eosinophils Absolute Auto 100 /uL (0-450); Eosinophils Percent Auto 0.8 % (2-4); Hematocrit 42.6 % (36-46); Hemoglobin 14.1 g/dL (12.0-16.0); Lymphocytes Absolute Auto 2600 /uL (1100-4500); Lymphocytes Percent Auto 25.2 % (25-40); Mean Corpuscular HGB Conc 33.2 % (30-36); Mean Corpuscular Hemoglobin 30.7 PG (26-34); Mean Corpuscular Volume 92.6 fL (80-100); Monocytes Absolute Auto 600 /uL (0-900); Monocytes Percent Auto 6.4 % (3-14); Neutrophils Absolute Auto 6800 /uL (1500-7000); Neutrophils Percent Auto 67.3 % (50-75); Platelet Count 244 X10^3/uL (150-400); Red Cell Distribution Width 13.5 % (11.6-14.8); White Blood Cell Count 10.1 X10^3/uL (4.5-11.0)
[2024-05-08 08:20] LABS: Alanine Aminotransferase 16 IU/L (<35); Albumin 4.3 g/dL (3.5-5.0); Albumin Globulin Ratio 1.6 (1.0-2.8); Alkaline Phosphatase 66 U/L (38-126); Aspartate Aminotransferase 23 IU/L (14-36); BUN Creatinine Ratio 19.4 (6-22); Bilirubin Total 0.9 mg/dL (0.2-1.3); Blood Urea Nitrogen 13 mg/dL (7-17); Calcium 9.3 mg/dL (8.4-10.2); Carbon Dioxide 26 mmol/L (22-32); Chloride 103 mmol/L (98-107); Cholesterol 179 mg/dL (140-199); Estimated Glomerular Filt Rate > 60 mL/min (>60); Globulin 2.7 g/dL (1.7-4.1); Glucose 100 mg/dL (70-100); HDL Cholesterol 89 mg/dL (40-60); HEMOLYSIS < 15 (0-50); LDL Cholesterol Calculated 63 mg/dL (<100); Potassium 4.3 mmol/L (3.4-5.1); Sodium 134 mmol/L (137-145); Triglycerides 136 mg/dL (35-150)
[2024-05-08 08:37] LABS: Free T3, Triiodothyronine Free 3.89 pg/mL (2.77-5.27); Free T4, Direct Thyroxine 0.87 ng/dL (0.78-2.19)
[2024-05-08 08:43] LABS: Creatinine Urine Random 265.38 mg/dL
[2024-05-08 08:48] LABS: Microalbumin Urine Random 1.2 mg/dL (0-1.6)
[2024-05-08 08:50] LABS: TSH w/ Reflex to FT4 6.29 uIU/mL (0.47-4.68)
[2024-05-08 08:53] LABS: Cortisol AM (Before 10AM) 19.5 ug/dL (4.46-22.7)
[2024-05-09 04:10] LABS: Apolipoprotein B 74 mg/dL (<90)
== END ==
PROVIDERS: PCP Family Medicine; Referring Provider Family Medicine; Visit Provider Family Medicine
DX: F90.2 Attention-deficit hyperactivity disorder, combined type (principal); F32.81 Premenstrual dysphoric disorder; F41.9 Anxiety disorder, unspecified; G47.9 Sleep disorder, unspecified; N93.9 Abnormal uterine and vaginal bleeding, unspecified; G47.00 Insomnia, unspecified
CPT/HCPCS: 36415; 80053; 80061; 82043; 82172; 82533; 82570; 84439; 84443; 84481; 85025

== ENCOUNTER → 2024-07-01 07:46 | Outpatient (CLI) | payer BC, SELFPAY ==
[2024-07-01 08:51] LABS: Free T3, Triiodothyronine Free 2.81 pg/mL (2.77-5.27); Free T4, Direct Thyroxine 0.87 ng/dL (0.78-2.19)
[2024-07-01 09:05] LABS: TSH w/ Reflex to FT4 2.23 uIU/mL (0.47-4.68)
== END ==
PROVIDERS: PCP Family Medicine; Referring Provider Family Medicine; Visit Provider Family Medicine
DX: E03.9 Hypothyroidism, unspecified (principal)
CPT/HCPCS: 36415; 84439; 84443; 84481

== ENCOUNTER → 2024-09-04 11:36 | Outpatient (CLI) | payer BC, SELFPAY ==
--- NOTE | 2024-09-04 11:37 | DI.MG.S_ITS ---
BILATERAL DIGITAL SCREENING MAMMOGRAM 3D/2D WITH CAD WITH AUGMENTATION: 09/04/2024 CLINICAL: Routine screening. Family history of breast cancer. Comparison is made to exam dated: 08/24/2023 mammogram - [facility]. The breasts are extremely dense, which lowers the sensitivity of mammography (category d />75% glandular tissue). Current study was also evaluated with a Computer Aided Detection (CAD) system. Bilateral breast implants are present. No significant masses, calcifications, or other findings are seen in either breast. There has been no significant interval change. IMPRESSION: NEGATIVE There is no mammographic evidence of malignancy. A 1 year screening mammogram is recommended. Based on Tyrer-Cuzick model (a risk assessment model), the patient's lifetime risk is 26.3% and her 10 year risk is 4.0%. If a patient has an elevated risk, a more comprehensive evaluation should be considered and/or a referral to a genetic counselor. The [place] [employer], [employer] [employer], and NCCN Guidelines advise the consideration of Breast MRI as an adjunct to screening mammography in patients whose Lifetime risk to develop breast cancer is 20% or higher. This exam was interpreted at Station ID: [id number]. NOTE: For mammograms, a report in lay terms will be sent to the patient. Approximately 15% of breast malignancies will not be visualized mammographically. In the management of a palpable breast mass, a negative mammogram must not discourage biopsy of a clinically suspicious lesion. Electronically Signed By: Romeo sutherland/salina:09/05/2024 07:53:33 letter sent: Normal Exam ACR BI-RADS Category 1: Negative
== END ==
PROVIDERS: PCP Family Medicine; Referring Provider Family Medicine; Visit Provider Family Medicine
DX: Z12.31 Encounter for screening mammogram for malignant neoplasm of breast (principal); Z80.3 Family history of malignant neoplasm of breast; R92.343 Mammographic extreme density, bilateral breasts
CPT/HCPCS: 77063; 77067

== ENCOUNTER → 2025-05-05 09:16 | Outpatient (CLI) | payer BC, SELFPAY ==
[2025-05-05 10:30] LABS: Add Manual Diff / Slide Review NO; Hematocrit 39.9 % (36-46); Hemoglobin 13.4 g/dL (12.0-16.0); Lymphocytes Absolute Auto 1600 /uL (1100-4500); Mean Corpuscular HGB Conc 33.5 % (30-36); Mean Corpuscular Hemoglobin 31.4 PG (26-34); Mean Corpuscular Volume 93.8 fL (80-100); Platelet Count 214 X10^3/uL (150-400)
[2025-05-05 10:56] LABS: Alanine Aminotransferase 22 IU/L (<35); Albumin 4.3 g/dL (3.5-5.0); Albumin Globulin Ratio 1.7 (1.0-2.8); Alkaline Phosphatase 63 U/L (38-126); Blood Urea Nitrogen 11 mg/dL (7-17); Calcium 9.0 mg/dL (8.4-10.2); Carbon Dioxide 23 mmol/L (22-32); Chloride 103 mmol/L (98-107); Cholesterol 172 mg/dL (140-199); Estimated Glomerular Filt Rate > 60 mL/min (>60); Globulin 2.6 g/dL (1.7-4.1); Glucose 100 mg/dL (70-99); HDL Cholesterol 93 mg/dL (40-60); HEMOLYSIS < 15 (0-50); Potassium 4.4 mmol/L (3.4-5.1); Sodium 134 mmol/L (137-145); Total Protein 6.9 g/dL (6.3-8.2); Triglycerides 88 mg/dL (35-150)
[2025-05-05 11:11] LABS: Follicle Stimulating Hormone 1.47 mIU/mL
[2025-05-05 11:28] LABS: TSH w/ Reflex to FT4 2.64 uIU/mL (0.47-4.68)
== END ==
PROVIDERS: PCP Family Medicine; Referring Provider Family Medicine; Visit Provider Family Medicine
DX: E03.9 Hypothyroidism, unspecified (principal); F90.2 Attention-deficit hyperactivity disorder, combined type; F41.9 Anxiety disorder, unspecified; N93.9 Abnormal uterine and vaginal bleeding, unspecified; F32.81 Premenstrual dysphoric disorder
CPT/HCPCS: 36415; 80053; 80061; 82172; 82670; 82677; 82679; 83001; 83002; 84402; 84403; 84443; 85025